=== PATIENT | female | born 1975 | race Caucasian/White ===

== ENCOUNTER 2016-08-06 12:43 | Emergency (ER) | payer MEDICAID, OTHER ==
[~2016-08-06] VITALS: Ht 152.4 cm; Wt 79.0 kg
[2016-08-06 12:57] VITALS: Ht 152.4 cm; Wt 79.0 kg
[2016-08-06 13:58] LABS: ADD SCAN DIFF NO
[2016-08-06 14:01] LABS: BASOPHIL # 0.1 10^3/ul (0.0-0.1); BASOPHILS % 0.7 % (0.0-2.0); EOSINOPHILS # 0.3 10^3/ul (0.0-0.5); EOSINOPHILS % 4.1 % (0.0-7.0); HEMATOCRIT 45.1 % (37.0-47.0); HEMOGLOBIN 14.9 g/dl (12.0-16.0); LYMPHOCYTES # 2.9 10^3/ul (0.8-2.9); LYMPHOCYTES % 42.8 % (15.0-51.0); MEAN CORPUSCULAR HEMOGLOBIN 29.4 pg (29.0-33.0); MEAN PLATELET VOLUME 9.8 fl (7.4-10.4); MONOCYTE # 0.3 10^3/ul (0.3-0.9); MONOCYTES % 4.3 % (0.0-11.0); NEUTROPHIL # 3.3 10^3/ul (1.6-7.5); PLATELET COUNT 370 10^3/UL (140-415); RED BLOOD COUNT 5.07 10^6/ul (4.20-5.40); WHITE BLOOD COUNT 6.8 10^3/ul (4.8-10.8)
[2016-08-06 14:06] LABS: ADD UMIC YES; URINE BILIRUBIN (Dip) NEGATIVE (NEGATIVE); URINE BLOOD (Dip) 2+ (NEGATIVE); URINE COLOR LT. YELLOW (YELLOW); URINE GLUCOSE (Dip) NEGATIVE (NEGATIVE); URINE KETONES (Dip) NEGATIVE (NEGATIVE); URINE LEUKOCYTE ESTERASE (Dip) NEGATIVE (NEGATIVE); URINE NITRITE (Dip) NEGATIVE (NEGATIVE); URINE TOTAL PROTEIN (Dip) 4+ (NEGATIVE); URINE UROBILINOGEN (Dip) 0.2 E.U./dL (0.1-1.0)
[2016-08-06 14:12] LABS: ALBUMIN 2.1 g/dl (3.3-4.9)
[2016-08-06 14:13] LABS: POTASSIUM 4.1 mmol/L (3.5-5.1)
[2016-08-06 14:15] LABS: ALBUMIN/GLOBULIN RATIO 0.65; BILIRUBIN,INDIRECT 0.1 mg/dl (0-1.1); BILIRUBIN,TOTAL 0.1 mg/dl (0.2-1.3); CREATININE 0.77 mg/dl (0.44-1.00); TOTAL PROTEIN 5.3 g/dl (6.1-8.1)
[2016-08-06 14:16] LABS: CALCIUM 7.6 mg/dl (8.4-10.2)
[2016-08-06 14:28] LABS: BACTERIA,URINE FEW
[2016-08-06] MEDS ORDERED: FURO20TA3 PO (14:44)
[2016-08-06] MEDS ORDERED: BENA20TA65 PO (14:44)
--- NOTE | 2016-08-06 14:54 | ERD ---
ER Documentation Chief Complaint Date/Time DATE: 08/06/16 TIME: 14:53 Chief Complaint eye lids swollen starting yesterday; no resp issues HPI This 41 year female complains of swelling in her eyelids starting yesterday. She also has some swelling in her calves or lower extremities. She denies any chest pain, shortness breath, fevers or recent illnesses. She denies any known renal issues. She does have some brief episodes in the past that something similar but resolved without treatment or medical visit. ROS All systems reviewed and are negative except as per history of present illness. Medications Home Meds Active Scripts Furosemide* (Furosemide*) 20 Mg Tablet, 20 MG PO DAILY, #7 TAB Prov:JANIE PHAM MD 08/06/16 Benazepril Hcl* (Lotensin*) 20 Mg Tablet, 20 MG PO DAILY, #15 TAB Prov:JANIE PHAM MD 08/06/16 PMhx/Soc Medical and Surgical Hx: pt denies Medical Hx, pt denies Surgical Hx Physical Exam Vitals Vital Signs Date Time Temp Pulse Resp B/P Pulse Ox O2 Delivery O2 Flow Rate FiO2 08/06/16 12:57 97.5 75 18 145/105 97 Physical Exam Const: [] Alert, not ill-appearing. Head: Atraumatic Eyes: Normal Conjunctiva. There is some mild generalized swelling of the upper lower bilateral eyelids without erythema, warmth. ENT: Normal External Ears, Nose and Mouth. Neck: Full range of motion..~ No meningismus. Resp: Clear to auscultation bilaterally Cardio: Regular rate and rhythm, no murmurs Abd: Soft, non tender, non distended. Normal bowel sounds Skin: No petechiae or rashes Back: No midline or flank tenderness Ext: No cyanosis, erythema. There is approximately 2+ bilateral pitting edema in the ankles. Neur: Awake and alert Psych: Normal Mood and Affect Result Diagram: 08/06/16 1340 08/06/16 1340 Results 24 hrs Laboratory Tests Test 08/06/16 13:40 White Blood Count 6.810^3/ul Red Blood Count 5.0710^6/ul Hemoglobin 14.9g/dl Hematocrit 45.1% Mean Corpuscular Volume 89.0fl Mean Corpuscular Hemoglobin 29.4pg Mean Corpuscular Hemoglobin Concent 33.0g/dl Red Cell Distribution Width 13.0% Platelet Count 28198^3/UL Mean Platelet Volume 9.8fl Neutrophils % 48.0% Lymphocytes % 42.8% Monocytes % 4.3% Eosinophils % 4.1% Basophils % 0.7% Nucleated Red Blood Cells % 0.0/100WBC Neutrophils # 3.310^3/ul Lymphocytes # 2.910^3/ul Monocytes # 0.310^3/ul Eosinophils # 0.310^3/ul Basophils # 0.110^3/ul Nucleated Red Blood Cells # 0.010^3/ul Urine Color LT. YELLOW Urine Clarity CLEAR Urine pH 7.0 Urine Specific [place] 1.010 Urine Ketones NEGATIVE Urine Nitrite NEGATIVE Urine Bilirubin NEGATIVE Urine Urobilinogen 0.2 E.U./dL Urine Leukocyte Esterase NEGATIVE Urine Microscopic RBC 2-5/HPF Urine Microscopic WBC 2-5/HPF Urine Epithelial Cells MANY Urine Bacteria FEW Urine Hemoglobin 2+ Urine Glucose NEGATIVE% Urine Total Protein 4+ Sodium Level 135mmol/L Potassium Level 4.1mmol/L Chloride Level 110mmol/L Carbon Dioxide Level 28mmol/L Anion Gap 1 Blood Urea Nitrogen 9mg/dl Creatinine 0.77mg/dl Glucose Level 83mg/dl Calcium Level 7.6mg/dl Total Bilirubin 0.1mg/dl Direct Bilirubin 0.00mg/dl Indirect Bilirubin 0.1mg/dl Aspartate Amino Transf (AST/SGOT) 31IU/L Alanine Aminotransferase (ALT/SGPT) 29IU/L Alkaline Phosphatase 101IU/L Total Protein 5.3g/dl Albumin 2.1g/dl Globulin 3.20g/dl Albumin/Globulin Ratio 0.65 Procedures/MDM Urine shows 4+ protein 2+ hemoglobin. Albumin is 3.2 total protein is 5.3 and albumin is 2.1. Additional CBC and CMP is normal. Patient has no signs of bacterial infection, diabetes. Patient appears to have new onset nephrotic syndrome. History suggests he may have had this intermittently in the past. Patient is advised that she will need nephrology evaluation. She will be discharged home the course of SHALINI inhibitor Lotensin 20 mg a day Lasix 20 mg a day for 1 week. Patient should see primary doctor this week but patient was referred to local hat parts cutter machine for further evaluation management. She should return for fevers, shortness breath, chest pain, new worsening symptoms. The patient was stable with no new complaints during the ER course. Clinically, there is no current evidence to suggest meningitis, sepsis, acute abdomen, pneumonia, acute coronary syndrome, pulmonary embolism, or any other emergent condition appearing to require further evaluation or hospitalization. The patient should certainly return for any new or worsening symptoms per the aftercare instructions. They should otherwise follow-up with her primary care doctor for reevaluation this week. Departure Diagnosis: Primary Impression: Nephrotic syndrome Additional Impression: Swelling Condition: Stable Patient Instructions: Peripheral Edema, Bilateral, Nephrotic Syndrome Referrals: SHAYE OLIVERA MD, KALPESH S. MD Additional Instructions: ECHADA ES DEL PROTEINA DE LOS RINONES. RECOMIENDO UN SPECIALISTa de los rinones. Cheque otro vez con martinez doctor primario en el proximo michael or regresa para mas o nueva simptomas. Va al martinez doctor/ specialista para mas evaluacon en el proximo semana. posiblemente necesita autorizado de martinez doctor primario para specialista. Regresa para fiebre, o mas o nueva simptomas. JANIE PHAM MD Aug 06, 2016 14:54
== END 2016-08-06 15:19 | disposition home or self-care (01) ==
LOC: FTE 12:43
DX: N04.9 Nephrotic syndrome with unspecified morphologic changes (principal); H02.845 Edema of left lower eyelid; H02.842 Edema of right lower eyelid; H02.844 Edema of left upper eyelid; H02.841 Edema of right upper eyelid
CPT/HCPCS: 80053; 81001; 81003; 85025; Z7502; 99283

== ENCOUNTER 2016-10-13 03:51 | Emergency (ER) | payer MEDICAID ==
[~2016-10-13] VITALS: Ht 149.9 cm; Wt 78.0 kg
[~2016-10-13 03:51] MED LIST: BENA20TA65 PO; FURO20TA3 PO
[2016-10-13 03:55] VITALS: Ht 149.9 cm; Wt 78.0 kg
[2016-10-13] MEDS ORDERED: ONDANSETRON (ODT) 4 MG TAB ODT STA (04:22)
[2016-10-13] MEDS ORDERED: KETOROLAC 30 MG INJ IM STA (04:22)
[2016-10-13] MEDS ORDERED: HYDROCODONE/APAP (5/325) TAB PO ONE (04:30)
[2016-10-13] MEDS ORDERED: ASPI1TAB30 PO (04:41)
--- NOTE | 2016-10-13 04:51 | ERA ---
ER Documentation Chief Complaint Date/Time DATE: 10/13/16 TIME: 04:44 Chief Complaint headache x 4 days HPI This is a 41-year-old female who is presented today ED with a chief complaint of headache. Patient is Uruguayan-speaking and the lode miner is Kaleb. Patient describes a headache as 7 out of 10. Describes a pain as in the back of her head wrapping around to the sides bilaterally. Patient has been taking ibuprofen with little relief. Patient has history of migraines. Patient denies any medical history including a history of kidney disease and she denies taking any medications other than a fore mentioned ibuprofen for migraine. Last ibuprofen was taken 4-6 hours ago per patient. Patient denies alcohol abuse, recreational drug use, smoking. Patient denies any family or personal history including heart irregularities, hypertension, pulmonary diseases, history of stroke, asthma and diabetes. Patient denies shortness of breath, chest pain, worsening of life, thunderclap headache, aura, eye pain, decreased vision, history of cancer or fever. Patient has no other complaints at this time. ROS All systems reviewed and are negative except as per history of present illness. Medications Home Meds Active Scripts Aspirin/Acetaminophen/Caffeine (Excedrin Migraine Caplet) 1 Each Tablet, 1 EACH PO BID WITH MEALS for 14 Days, TAB Prov:RIYA SMITH PA-C 10/13/16 Furosemide* (Furosemide*) 20 Mg Tablet, 20 MG PO DAILY, #7 TAB Prov:JANIE PHAM MD 08/06/16 Benazepril Hcl* (Lotensin*) 20 Mg Tablet, 20 MG PO DAILY, #15 TAB Prov:JANIE PHAM MD 08/06/16 Allergies Allergies: Coded Allergies: No Known Drug Allergies (Verified Allergy, Unknown, 10/13/16) PMhx/Soc History of Surgery: Yes () Hx Miscellaneous Medical Probl: Yes (migraines) Hx Alcohol Use: No Hx Substance Use: No Hx Tobacco Use: No Physical Exam Vitals Vital Signs Date Time Temp Pulse Resp B/P Pulse Ox O2 Delivery O2 Flow Rate FiO2 10/13/16 05:24 97.6 62 17 129/85 100 Room Air 10/13/16 03:55 98.0 83 20 144/93 98 Physical Exam Const: Overweight. Well-nourished. Well-developed. No acute distress. Able to smile Head: Normocephalic, Atraumatic. No sinus tenderness. Eyes: Non-injected; No scleral erythema, discharge or foreign body. EOMI and CLYDE bilaterally. Ears: Normal External Ears, EACs clear, TM normal bilaterally without erythema. Nose: Normal nose without discharge, septal deviation, or sinus tenderness. Oral: No oral edema visualized. Mucous membranes moist and pink. Neck: No cervical lymphadenopathy, masses or goiter palpated. Full range of motion. Supple. Trachea midline. ~ No meningismus. Pulm: Good air movement in upper and lower respiratory tracts. No dyspnea, stridor, tripoding or drooling. Clear to auscultation bilaterally. Percussion unremarkable in all lung navarrete bilaterally. Cardio: Regular rate and rhythm; No murmurs, gallops or rubs auscultated. No JVD grossly observed. Radial and posterior tibial pulses 2+ bilaterally. No cyanosis. Capillary refill less than 2 seconds. Abd: Soft, non tender, non distended. No guarding, masses. Normal bowel sounds. No McBurney's point tenderness. MS: Normal motor strength, normal tone with gross examination. Skin: No petechiae or rashes. No ulcer, induration, jaundice. Good turgor. Back: No midline, flank or CVA tenderness. Ext: No cyanosis, or edema. Normal movement of all extremities grossly observed. Neur: Awake, alert and oriented x3. Neurovascularly intact bilaterally. Psych: Active and alert. Normal Mood and Affect. Oriented x3. Results 24 hrs Current Medications Medications (Trade) Dose Ordered Sig/Kilo Route PRN Reason Start Time Stop Time Status Last Admin Dose Admin Ondansetron HCl (Zofran Odt) 4 mg ONCE STAT ODT 10/13/16 04:22 10/13/16 04:29 DC 10/13/16 04:34 Acetaminophen/ Hydrocodone Bitart (Pine Top (5/325)) 1 tab ONCE ONCE PO 10/13/16 04:30 10/13/16 04:31 DC 10/13/16 04:34 Ketorolac Tromethamine (Toradol) 30 mg ONCE STAT IM 10/13/16 04:22 10/13/16 04:29 DC 10/13/16 04:35 Procedures/MDM 41-year-old female being worked up and evaluated for headache with characteristics as described in the HPI. Physical exam was unremarkable. Patient denies any medical conditions or use of any medications at home other than the aforementioned ibuprofen. Reviewed patient's medical history 3 times before treatment. Patient was given 4 mg of Zofran, 5/325 mg of Pine Top, and 30 mg IM of Toradol with resolution of symptoms. I presented the case to my attending who has agreed with my assessment and plan. Upon reevaluation the patient she was sleeping and difficult to wake. Once patient was woken she began acting normally again. Vitals were taken again which were unremarkable. At this time, I have little suspicion for subarachnoid hemorrhage or other intracranial bleeds, meningitis, temporal arteritis, glaucoma, hypertensive urgency/emergency, cerebral ischemia, arterial dissection, brain abscess/tumor, pain secondary to trauma, septicemia, or other intracranial bleeds. Patient will be discharged with acetaminophen for headache relief. After review of previous documents, I have instructed the patient to discontinue ibuprofen due to possible kidney disease. I have also recommended that the patient see a primary care provider within the next 1-3 days for further evaluation, possible referral to a specialist and chronic management of any wound conditions. Patient's vitals are stable and her current condition is appropriate for discharge. Have spoken with my attending and he agrees with the assessment and plan. Will discharge patient with discharge instructions and return precautions. Departure Diagnosis: Primary Impression: Headache Qualified Code: G44.209 - Acute non intractable tension-type headache Condition: Stable Patient Instructions: Self-Care for Headaches Referrals: [facility] YOU HAVE RECEIVED A MEDICAL SCREENING EXAM AND THE RESULTS INDICATE THAT YOU DO NOT HAVE A CONDITION THAT REQUIRES URGENT TREATMENT IN THE EMERGENCY DEPARTMENT. FURTHER EVALUATION AND TREATMENT OF YOUR CONDITION CAN WAIT UNTIL YOU ARE SEEN IN YOUR DOCTORS OFFICE WITHIN THE NEXT 1-2 DAYS. IT IS YOUR RESPONSIBILITY TO MAKE AN APPOINTMENT FOR FOLOW-UP CARE. IF YOU HAVE A PRIMARY DOCTOR --you should call your primary doctor and schedule an appointment IF YOU DO NOT HAVE A PRIMARY DOCTOR YOU CAN CALL OUR PHYSICIAN REFERRAL HOTLINE AT IF YOU CAN NOT AFFORD TO SEE A PHYSICIAN YOU CAN CHOSE FROM THE FOLLOWING [facility] [address] [facility]. [facility] [address] [facility] [facility] [address] [facility] [facility] [address] [facility] [address] [facility] [facility] [facility] Usted se fong hecho un examen mdico de control que le indica que no est en mario condicin que requiera tratamiento urgente en el Departamento de Emergencia. Un estudio ms profundo y el tratamiento de martinez condicin pueden esperar sin ningn riesgo hasta que usted sea atendida/o en el consultorio de martinez mdico o mario cl peg. Es responsabilidad suya arreglar mario nia para el seguimiento del pablo. MANEJO DE CONDICIONES NO URGENTES EN EL FUTURO 1) Si usted tiene un mdico de atencin primaria: Usted debera llamar a martinez mdico de atencin primaria antes de venir al departamento de emergencia. Despus de las horas de consultorio, martinez doctor o martinez asociado/a est disponible por telfono. El mdico o enfermero de [place] en el servicio telefnico puede asesorarle por rosio medio para atender el problema, o pablo contrario se puede programar mario nia. 2) Si usted no tiene un mdico de atencin primaria: Llame al mdico o clnica de referencia que aparece abajo jonathan las horas de consultorio para hacer mario nia para que le vean. CLINICAS: [facility] [phone] [facility] [phone] [place] [phone] [facility]. [facility] [phone] [address] [facility]. [facility] [phone] [address] [facility] [phone] [address] Additional Instructions: Follow up with your PCP within the next 1-3 days for a more thorough evaluation and a possible referral to a specialist. Return the the emergency department immediately if symptoms worsen or change. Discontinue ibuprofen use. If you have any questions regarding medications, ask your pharmacist or us before you leave. If any adverse reactions occur while taking your medications, discontinue the treatment and return to the emergency department immediately. Take your medications as directed, and complete the entire course of treatment. RIYA SMITH PA-C Oct 13, 2016 04:51
[2016-10-13 05:24] VITALS: BP 129/85; PULSE 62; RESP 17; TEMP 97.6
== END 2016-10-13 05:53 | disposition home or self-care (01) ==
LOC: FTE 03:51
DX: G44.209 Tension-type headache, unspecified, not intractable (principal)
CPT/HCPCS: 96372; J1885; Z7502; Z7610

== ENCOUNTER 2016-10-31 15:06 | Emergency (ER) | payer MEDICAID ==
[~2016-10-31] VITALS: Wt 80.5 kg
[~2016-10-31 15:06] MED LIST changes: +ASPI1TAB30 PO
[2016-10-31 16:25] LABS: ADD SCAN DIFF NO; BASOPHIL # 0.1 10^3/ul (0.0-0.1); BASOPHILS % 1.1 % (0.0-2.0); EOSINOPHILS # 0.6 10^3/ul (0.0-0.5); EOSINOPHILS % 7.3 % (0.0-7.0); HEMATOCRIT 35.1 % (37.0-47.0); LYMPHOCYTES # 2.9 10^3/ul (0.8-2.9); LYMPHOCYTES % 33.8 % (15.0-51.0); MEAN CORPUSCULAR HEMOGLOBIN 30.5 pg (29.0-33.0); MEAN CORPUSCULAR HGB CONC 34.2 g/dl (32.0-37.0); MEAN CORPUSCULAR VOLUME 89.1 fl (82.0-101.0); MEAN PLATELET VOLUME 9.2 fl (7.4-10.4); MONOCYTE # 0.3 10^3/ul (0.3-0.9); MONOCYTES % 3.8 % (0.0-11.0); NEUTROPHIL # 4.5 10^3/ul (1.6-7.5); NEUTROPHILS % 53.8 % (39.0-77.0); PLATELET COUNT 405 10^3/UL (140-415); RED BLOOD COUNT 3.94 10^6/ul (4.20-5.40); RED CELL DISTRIBUTION WIDTH 13.6 % (11.5-14.5); WHITE BLOOD COUNT 8.4 10^3/ul (4.8-10.8)
[2016-10-31 16:36] LABS: ADD UMIC YES; UR ASCORBIC ACID NEGATIVE (NEGATIVE); UR BILIRUBIN (Dip) NEGATIVE (NEGATIVE); UR BLOOD (Dip) 1+ mg/dL (NEGATIVE); UR CLARITY SLIGHTLY CLOUDY (CLEAR); UR COLOR YELLOW (YELLOW); UR GLUCOSE (Dip) 1+ mg/dL (NEGATIVE); UR KETONES (Dip) NEGATIVE (NEGATIVE); UR LEUKOCYTE ESTERASE (Dip) NEGATIVE Leu/ul (NEGATIVE); UR MUCUS FEW /HPF (NONE SEEN); UR NITRITE (Dip) NEGATIVE (NEGATIVE); UR RBC 9 /HPF (0-5); UR SPECIFIC GRAVITY (Dip) 1.012 (1.003-1.030); UR SQUAMOUS EPITHELIAL CELL FEW /HPF (FEW); UR TOTAL PROTEIN (Dip) 3+ mg/dl (NEGATIVE); UR UROBILINOGEN (Dip) NEGATIVE (NEGATIVE)
[2016-10-31 16:42] LABS: ALBUMIN 2.6 g/dl (3.3-4.9); ALBUMIN/GLOBULIN RATIO 0.83; CALCIUM 7.7 mg/dl (8.4-10.2); CREATININE 1.8 mg/dl (0.44-1.00); POTASSIUM 3.6 mmol/L (3.5-5.1); TOTAL PROTEIN 5.7 g/dl (6.1-8.1)
--- NOTE | 2016-10-31 17:55 | ERD ---
ER Documentation Chief Complaint Date/Time DATE: 10/31/16 TIME: 17:44 Chief Complaint GENERALIZED BODY SWELLING X4 DAYS, NO SOB, NO CP, DENIES MED PROBLEM HPI Patient is a 41-year-old female with no past medical history who presents to the ED with swelling in her arms, legs feet and face. She states that it started with her eyes and feet and has increased to her entire body in the last week. She states that she was here for similar complaints August 2016. She states that it has been about the same ever since but gotten worse in the last couple of days. She denies abdominal pain, nausea, vomiting or diarrhea. Denies chest pain or cough or shortness of breath. Denies headache or dizziness. Eyes fever or chills. Denies recent travel or recent surgery. States that she has not seen a specialist for this reason and does not have a primary care provider. Denies urinary complaints. ROS All systems reviewed and are negative except as per history of present illness. Medications Home Meds Active Scripts Aspirin/Acetaminophen/Caffeine (Excedrin Migraine Caplet) 1 Each Tablet, 1 EACH PO BID WITH MEALS for 14 Days, TAB Prov:RIYA SMITH PA-C 10/13/16 Furosemide* (Furosemide*) 20 Mg Tablet, 20 MG PO DAILY, #7 TAB Prov:JANIE PHAM MD 08/06/16 Benazepril Hcl* (Lotensin*) 20 Mg Tablet, 20 MG PO DAILY, #15 TAB Prov:JANIE PHAM MD 08/06/16 Allergies Allergies: Coded Allergies: No Known Drug Allergies (Verified Allergy, Unknown, 10/13/16) PMhx/Soc Medical and Surgical Hx: pt denies Medical Hx History of Surgery: Yes () Hx Miscellaneous Medical Probl: Yes (migraines) Hx Alcohol Use: No Hx Substance Use: No Hx Tobacco Use: No FmHx Family History: No coronary disease, No diabetes, No other Physical Exam Vitals Vital Signs Date Time Temp Pulse Resp B/P Pulse Ox O2 Delivery O2 Flow Rate FiO2 10/31/16 15:12 97.9 106 16 165/113 98 Physical Exam GENERAL: Well-developed, well-nourished female. Appears in no acute distress. HEAD: Normocephalic, atraumatic. EYES: Pupils are equally reactive bilaterally. EOMs grossly intact. No conjunctival erythema. swollen face. ENT: Moist mucous membranes. No uvula deviation. No kissing tonsils. No exudates. NECK: Supple. No lymphadenopathy or thyromegaly. No meningismus. negative kernig. negative brudinski. LUNG: Clear to auscultation bilaterally. No rhonchi, wheezing, rales or coarse breath sounds. HEART: Regular rate and rhythm. No murmurs, rubs or gallops. Extremities: Equal pulses bilaterally. No peripheral clubbing, cyanosis or edema. No unilateral leg swelling. NEUROLOGIC: Alert and oriented. Moving all four extremities. 5/5 strength in all extremities. Normal speech. Steady gait. SKIN: Normal color. Warm and dry. No rashes or lesions. Capillary refill < 2 seconds Result Diagram: 10/31/16 1615 10/31/16 1615 Results 24 hrs Laboratory Tests Test 10/31/16 16:00 10/31/16 16:15 Urine Color YELLOW Urine Clarity SLIGHTLY CLOUDY Urine pH 5.0 Urine Specific [place] 1.012 Urine Ketones NEGATIVEmg/dL Urine Nitrite NEGATIVEmg/dL Urine Bilirubin NEGATIVEmg/dL Urine Urobilinogen NEGATIVEmg/dL Urine Leukocyte Esterase NEGATIVELeu/ul Urine Microscopic RBC 9/HPF Urine Microscopic WBC 5/HPF Urine Squamous Epithelial Cells FEW/HPF Urine Mucus FEW/HPF Urine Hemoglobin 1+mg/dL Urine Glucose 1+mg/dL Urine Total Protein 3+mg/dl White Blood Count 8.410^3/ul Red Blood Count 3.9410^6/ul Hemoglobin 12.0g/dl Hematocrit 35.1% Mean Corpuscular Volume 89.1fl Mean Corpuscular Hemoglobin 30.5pg Mean Corpuscular Hemoglobin Concent 34.2g/dl Red Cell Distribution Width 13.6% Platelet Count 24218^3/UL Mean Platelet Volume 9.2fl Neutrophils % 53.8% Lymphocytes % 33.8% Monocytes % 3.8% Eosinophils % 7.3% Basophils % 1.1% Nucleated Red Blood Cells % 0.0/100WBC Neutrophils # 4.510^3/ul Lymphocytes # 2.910^3/ul Monocytes # 0.310^3/ul Eosinophils # 0.610^3/ul Basophils # 0.110^3/ul Nucleated Red Blood Cells # 0.010^3/ul Sodium Level 133mmol/L Potassium Level 3.6mmol/L Chloride Level 109mmol/L Carbon Dioxide Level 23mmol/L Anion Gap 5 Blood Urea Nitrogen 14mg/dl Creatinine 1.80mg/dl Glucose Level 94mg/dl Calcium Level 7.7mg/dl Total Bilirubin 0.0mg/dl Direct Bilirubin 0.00mg/dl Indirect Bilirubin 0.0mg/dl Aspartate Amino Transf (AST/SGOT) 24IU/L Alanine Aminotransferase (ALT/SGPT) 33IU/L Alkaline Phosphatase 92IU/L Total Protein 5.7g/dl Albumin 2.6g/dl Globulin 3.10g/dl Albumin/Globulin Ratio 0.83 Lipase 122U/L Procedures/MDM ER COURSE: I kept the patient and/or family informed of laboratory and diagnostic imaging results throughout the emergency room course. LABORATORY STUDIES CBC is within normal limits does not show signs of severe infection or anemia. CMP does not show signs of hypoglycemia or electrolyte disturbance. Creatinine is 1.8, calcium 7.7 albumin 2.6. Negative test. UA shows 1+ hemoglobin 1+ glucose and 3+ protein with mucus. MEDICAL DECISION MAKING: This is a 41-year-old female who presents with body swelling 3 months. Vital signs were reviewed. Patient is afebrile. Patient is not hypoxic. Patient is not toxic or ill-appearing I consulted with my supervising physician Dr. Kiser who reviewed her laboratory studies. Patient is stable for outpatient therapy no treatment will be given here in the ED or outpatiently. Patient must follow- up with a livestock counter. Low suspicion for ACS, AAA, perforated ulcer, bowel obstruction, cholecystitis, choledocholithiasis, cholangitis, pancreatitis, hepatic abscess, appendicitis, diverticulitis, gastroenteritis, hepatitis, peptic ulcer disease. I reiterated the fact that patient needs to follow-up with a specialist regarding her chronic issue. Patient understood and agreed with plan low suspicion for kidney failure at this time DISCHARGE: At this time, patient is stable for discharge and outpatient management with no new complaints during the ER course. Patient was sent home with copy of laboratory studies, patient to follow-up with livestock counter.. Patient will be discharged home with instructions to recheck for new or worsening symptoms such as fever, nausea, weakness, LOC and to follow up with primary care in the next 1 -2 days. Patient was advised to return to the ER for any new or worsening symptoms. Plan was discussed and patient and/or family understands and agrees. Home instructions were given. Departure Diagnosis: Primary Impression: Swelling Condition: Stable Referrals: RANJEET INGRAM MD, HOOMAN DO NASSER, YASSER A MD PATEL, KALPESH S. MD SELEK,JENNIFER MARCUS,MARGUERITE SANTIAGO,[facility] () Usted se fong hecho un examen mdico de control que le indica que no est en mario condicin que requiera tratamiento urgente en el Departamento de Emergencia. Un estudio ms profundo y el tratamiento de martinez condicin pueden esperar sin ningn riesgo hasta que usted sea atendida/o en el consultorio de martinez mdico o mario cl peg. Es responsabilidad suya arreglar mario timothy para el seguimiento del pablo. MANEJO DE CONDICIONES NO URGENTES EN EL FUTURO 1) Si usted tiene un mdico de atencin primaria: Usted debera llamar a martinez mdico de atencin primaria antes de venir al departamento de emergencia. Despus de las horas de consultorio, martinez doctor o martinez asociado/a est disponible por telfono. El mdico o enfermero de [place] en el servicio telefnico puede asesorarle por rosio medio para atender el problema, o pablo contrario se puede programar mario timothy. 2) Si usted no tiene un mdico de atencin primaria: Llame al mdico o clnica de referencia que aparece abajo jonathan las horas de consultorio para hacer mario timothy para que le vean. CLINICAS: [facility] [phone] [facility] [phone] [facility] [phone] [facility] [phone] [facility]. [facility] 928 [phone] [facility] [phone] [address] Additional Instructions: SIGUE CON DOCTOR DE RINONES. UROLOGO Llame al doctor MAANA y shaheen mario TIMOTHY PARA DENTRO DE 1-2 CHARLES.Dgale a la secretaria que nosotros le instruimos hacer esta timothy.Avise o llame si martinez condicin se empeora antes de la timothy. Regresa aqui si peor o no mejor. EL MACIAS PA-C Oct 31, 2016 17:55
== END 2016-10-31 17:17 | disposition home or self-care (01) ==
LOC: FTE 15:06
DX: R60.1 Generalized edema (principal); Z79.82 Long term (current) use of aspirin
CPT/HCPCS: 36415; 80053; 81001; 83690; 85025; 99283